=== PATIENT | female | born 1985 | race Caucasian/White ===

== ENCOUNTER 2018-03-01 00:51 | Emergency (ER) | payer SELFPAY ==
--- NOTE | 2018-03-01 10:04 | ULT ---
PRELIMINARY REPORT/[facility]/EMERGENTY AFTER-HOURS PROCEDURE US Pelvis Complete, Transabdominal US Pelvis, Transvaginal CLINICAL HISTORY: 33 years old, female; Pain; Irregular menstruation; Pelvic pain and vaginal pain; R/O PID TECHNIQUE: Real-time transabdominal and transvaginal pelvic ultrasound (complete) with image documentation. [facility] svaginal imaging was used for better evaluation of the endometrium and adnexa. COMPARISON: No relevant prior studies available. FINDINGS: The uterus measures 8.0 x 4.0 x 4.9 cm and exhibits homogeneous echogenicity. Endometrial stripe measures 7.2 mm without evidence of internal fluid within the endometrial canal. The right ovary measures 3.4 x 2.8 x 3.0 cm with follicular cysts. The left ovary measures 3.0 x 2.6 x 2.0 cm. Dominant left ovarian follicle measuring 13 x 12 x 12 mm. Normal Doppler flow to each ovary. No free pelvic fluid. IMPRESSION: Dominant left ovarian follicle measuring 13 x 12 x 12 mm. Normal uterus and right ovary. Thank you for allowing us to participate in the care of your patient. Dictated and Authenticated by: Rob Chavarria MD 03/01/2018 3:25 AM Central Time ([place] & [place]) FINAL REPORT: EMERGENT AFTER HOURS PELVIC ULTRASOUND: Comparison: None. FINDINGS/IMPRESSION: I agree with the findings and impression given in the preliminary report by [facility] physician. No signif icant pelvic abnormality. POS: [facility]
== END 2018-03-01 03:46 | disposition home or self-care (01) ==
LOC: ERS 00:51
DX: N73.9 Female pelvic inflammatory disease, unspecified (principal); F17.210 Nicotine dependence, cigarettes, uncomplicated
CPT/HCPCS: 76856